=== PATIENT | female | born 1955 | race Hispanic/Latino ===

== ENCOUNTER 2022-04-26 08:31 | Emergency (ER) | payer OTHER ==
--- NOTE | 2022-04-26 14:48 | Emergency Department Report ---
ED Extremity Problem HPI - General Chief complaint: Extremity Injury, Lower Stated complaint: TWISTED LEFT FOOT Source: patient Mode of arrival: Ambulatory Limitations: No Limitations - History of Present Illness Initial comments: 66-year-old female presents to the ED complaining left foot pain. Patient states that she works at [employer] and she accidentally twisted her left foot. Patient states that she took some [id number] medication without any relief. Patient has obvious swelling noted to the left ankle. She states pain when walking. Patient is able to move toes with pain. Patient has no obvious deformity noted. She has no obvious distracting injury noted. Patient states pain is a current 8 out of 10. Patient denies any numbness and tingling. She denies any past medical hx. patient is alert and oriented x3. No acute distress noted. No ill appearance noted. MD Complaint: extremity swelling -: days(s) Location: left History of Same: No Radiation: none Severity scale (0 -10): 8 Quality: aching Consistency: intermittent Improves with: nothing Worsens with: weight bearing Associated Symptoms: denies other symptoms - Related Data Previous Rx's Medication Instructions Recorded Last Taken Type Acetaminophen/Codeine [Tylenol 1 tab PO Q6H PRN 3 Days #12 tab 04/26/22 Unknown Rx /Codeine # 3 tab] Allergies Allergy/AdvReac Type Severity Reaction Status Date / Time dog dander Allergy Intermediate Itching Verified 04/26/22 08:57 cat dander Allergy Itching Verified 04/26/22 08:57 ED Review of Systems ROS: Stated complaint: TWISTED LEFT FOOT Other details as noted in HPI Constitutional: denies: chills, fever Eyes: denies: eye pain, eye discharge, vision change ENT: denies: ear pain, throat pain Respiratory: denies: cough, shortness of breath, wheezing Cardiovascular: denies: chest pain, palpitations Endocrine: no symptoms reported Gastrointestinal: denies: abdominal pain, nausea, diarrhea Genitourinary: denies: urgency, dysuria, discharge Musculoskeletal: joint swelling. denies: back pain, arthralgia Skin: denies: rash, lesions Neurological: denies: headache, weakness, paresthesias Psychiatric: denies: anxiety, depression Hematological/Lymphatic: denies: easy bleeding, easy bruising ED Past Medical Hx - Medications Home Medications: Home Medications Medication Instructions Recorded Confirmed Last Taken Type Acetaminophen/Codeine [Tylenol 1 tab PO Q6H PRN 3 Days #12 tab 04/26/22 Unknown Rx /Codeine # 3 tab] ED Physical Exam - General Limitations: No Limitations General appearance: alert, in no apparent distress - Head Head exam: Present: atraumatic, normocephalic - Eye Eye exam: Present: normal appearance - ENT ENT exam: Present: mucous membranes moist - Neck Neck exam: Present: normal inspection - Respiratory Respiratory exam: Present: normal lung sounds bilaterally. Absent: respiratory distress - Cardiovascular Cardiovascular Exam: Present: regular rate, normal rhythm. Absent: systolic murmur, diastolic murmur, rubs, gallop - GI/Abdominal GI/Abdominal exam: Present: soft, normal bowel sounds - Extremities Exam Extremities exam: Present: normal inspection - Back Exam Back exam: Present: normal inspection - Neurological Exam Neurological exam: Present: alert, oriented X3 - Psychiatric Psychiatric exam: Present: normal affect, normal mood - Skin Skin exam: Present: warm, dry, intact, normal color. Absent: rash ED Course Vital Signs 04/26/22 04/26/22 08:51 15:10 Temperature 98.7 F 98.2 F Pulse Rate 96 H 88 Respiratory 18 16 Rate Blood Pressure 111/62 138/78 [Right] O2 Sat by Pulse 96 100 Oximetry ED Medical Decision Making - Medical Decision Making 66-year-old female presents to the ED complaining left foot pain. Patient states that she works at [employer] and she accidentally twisted her left foot. Patient states that she took some [id number] medication without any relief. Patient has obvious swelling noted to the left ankle. She states pain when walking. Patient is able to move toes with pain. Patient has no obvious deformity noted. She has no obvious distracting injury noted. Patient states pain is a current 8 out of 10. Patient denies any numbness and tingling. She denies any past medical hx. patient is alert and oriented x3. No acute distress noted. No ill appearance noted. Physical examination patient has obvious swelling noted to the right ankle area. Left foot x-ray shows a stable fracture of the second metatarsal head. Patient is to follow-up with [employer] orthopedic doctor. Matthew wrap placed with boot splint. Rechecked the patient is resting quietly quietly and comfortable and feeling better. I discussed the results of diagnostic study, my clinical impression and the plan for further treatment with the patient. Patient agrees with plan and discharge at this present time. All question addressed. I have given the patient instruction regarding a diagnosis ,expectation ,follow- up and return precaution. I explained to the patient that emergent condition may arise and to return to the ED for new worsen and any new persisting condition. I have explained the importance of following up with the primary care physician or referral physician listed below has instructed. The patient verbalized understanding of discharge instruction. Critical care attestation.: If time is entered above; I have spent that time in minutes in the direct care of this critically ill patient, excluding procedure time. ED Disposition Clinical Impression: Left ankle swelling Metatarsal fracture Qualifiers: Encounter type: initial encounter Metatarsal bone: second Fracture type: closed Fracture alignment: nondisplaced Laterality: left Qualified Code(s): S92.325A - Nondisplaced fracture of second metatarsal bone, left foot, initial encounter for closed fracture Disposition: 01 HOME / SELF CARE / HOMELESS Is pt being admited?: No Does the pt Need Aspirin: No Condition: Stable Instructions: How to Use Cold Therapy, [id number], Metatarsal Fracture Additional Instructions: Take medication as prescribed Return to ED for any worsening symptom Follow-up with [employer] orthopedic doctor per your job Prescriptions: Acetaminophen/Codeine [Tylenol /Codeine # 3 tab] 1 tab PO Q6H PRN 3 Days #12 tab PRN Reason: Pain, Mild (1-3) Referrals: ARTIE PUENTES MD [Staff Physician] - 3-5 Days Forms: Work/School Release Form(ED)
[2022-04-26 15:23] VITALS: BP 138/78
--- NOTE | 2022-04-26 17:50 | XRay Report ---
Left ankle 2 views INDICATION: Swelling FINDINGS: Diffuse centimeter lateral ankle. Talar dome appears intact. Calcaneus is calcaneal spurrin g. No acute fractures seen. IMPRESSION: Diffuse swelling within the medial and lateral ankle. Calcaneal spurring is noted Signer Name: Angel Irene MD Signed: 04/26/2022 5:43 PM Workstation Name: [id number]
--- NOTE | 2022-04-26 17:52 | XRay Report ---
Left foot 2 views INDICATION: Foot pain FINDINGS: Irregularity in the second metatarsal head suggesting small fracture irregularity. There ma y be some minimal cortical irregularity/fracture in the proximal phalanx and second toe in this area as well. Soft tissue swelling is seen. Calcaneal spurring is noted. Signer Name: Angel Irene MD Signed: 04/26/2022 5:45 PM Workstation Name: [id number]
== END 2022-04-26 15:28 | disposition home or self-care (01) ==
LOC: ED 08:31
DX: S92.325A Nondisplaced fracture of second metatarsal bone, left foot, initial encounter for closed fracture (principal); M79.672 Pain in left foot; X58.XXXA Exposure to other specified factors, initial encounter; Y93.89 Activity, other specified; Y92.89 Other specified places as the place of occurrence of the external cause; Y99.8 Other external cause status
CPT/HCPCS: 99283